=== PATIENT | female | born 1960 | race Caucasian/White ===

== ENCOUNTER 2021-01-28 07:32 | Emergency (ER) | payer BC, OTHER ==
[2021-01-28 07:51] VITALS: TEMP 98.1
[2021-01-28 08:44] LABS: BASO % 0.2 % (0-2.0); EOS % 1.2 % (0-4.5); HEMATOCRIT 42.7 % (32.4-45.2); HEMOGLOBIN 14.2 GM/dL (10.7-15.3); LYMPH % 16.1 % (8-40); MCH 27.4 pg (25.7-33.7); MCHC 33.2 g/dl (32.0-36.0); MEAN CELL VOLUME 82.6 fl (80-96); MEAN PLT VOLUME 10.5 fl (7.5-11.1); MONO % 6.5 % (3.8-10.2); PLATELET COUNT 235 10^3/uL (134-434); RBC 5.18 M/mm3 (3.60-5.2); RDW 15.7 % (11.6-15.6); WHITE BLOOD COUNT 12.1 K/mm3 (4.0-10.0)
[2021-01-28 08:51] LABS: INR 1.02 (0.83-1.09); PROTHROMBIN TIME (PATIENT) 12.5 SEC (9.7-13.0)
[2021-01-28 08:54] LABS: ACTIVATED PTT 36.2 SECONDS (25.2-36.5)
[2021-01-28 08:57] LABS: CHLORIDE 107 mmol/L (98-107); SODIUM 141 mmol/L (136-145)
[2021-01-28 08:59] LABS: CALCIUM 9.1 mg/dL (8.5-10.1)
[2021-01-28 09:00] LABS: ANION GAP 9 MMOL/L (8-16); BLOOD UREA NITROGEN 10.6 mg/dL (7-18); CO2 25 mmol/L (21-32); GLUCOSE,RANDOM 104 mg/dL (74-106)
[2021-01-28 09:03] LABS: CREATININE 0.6 mg/dL (0.55-1.3); SGOT/AST 14 U/L (15-37); SGPT/ALT 23 U/L (13-61)
[2021-01-28 09:04] LABS: BILIRUBIN,TOTAL 0.8 mg/dL (0.2-1)
[2021-01-28 09:05] LABS: TOT PROT 7.3 g/dl (6.4-8.2)
[2021-01-28 09:06] LABS: ALK PHOS 88 U/L (45-117)
[2021-01-28] MEDS ORDERED: KETOROLAC TROMETHAMINE 30 MG/1 ML VIAL IVPUSH ONE (12:11)
[2021-01-28] MEDS ORDERED: KETOROLAC TROMETHAMINE 30 MG/1 ML VIAL ONE (12:14)
[2021-01-28 12:47] VITALS: BP 137/79; PULSE 80
== END 2021-01-28 12:45 | disposition home or self-care (01) ==
LOC: JER 07:32
PROC: 3E0333Z Introduction of Anti-inflammatory into Peripheral Vein, Percutaneous Approach (ICD-10-PCS; principal; 2021-01-28)
DX: R06.02 Shortness of breath (principal); M54.6 Pain in thoracic spine
CPT/HCPCS: 36415; 71275-TC; 80053; 82550; 84484; 85025; 85379; 85610; 85730; 86850; 86900; 86901; 93005; 93010; 99285-25; C9803; Q9967; U0003; U0005

== ENCOUNTER 2023-01-10 08:10 | Day surgery (SDC) | payer BC, OTHER ==
[2023-01-10 09:45] VITALS: RESP 18; BMI 31.7
[2023-01-10] MEDS ORDERED: DEXAMETHASONE SOD PHOSPHATE/PF 10 MG/ML SDV ONE (11:08)
[2023-01-10] MEDS ORDERED: ROPIVACAINE HCL 0.5% 30ML VIAL ONE (11:08)
[2023-01-10] MEDS ORDERED: MIDAZOLAM HCL 2 MG/2 ML SINGLE DOSE VIAL ONE ×2 (11:08→12:03)
[2023-01-10] MEDS ORDERED: SUCCINYLCHOLINE CHLORIDE 200 MG/10 ML SYRINGE ONE (11:41)
[2023-01-10] MEDS ORDERED: PROPOFOL 40 ML ONE (11:41)
[2023-01-10] MEDS ORDERED: ONDANSETRON 4 MG/2 ML VIAL IVPUSH PRN (13:15)
[2023-01-10] MEDS ORDERED: oxyCODONE HCL 5 MG TABLET PO PRN (13:15)
[2023-01-10] MEDS ORDERED: LACTATED RINGERS SOLUTION 1,000 ML IV SCH (13:15)
[2023-01-10 14:35] VITALS: PULSE 85; TEMP 97.8
[2023-01-10 14:36] VITALS: BP 133/81
== END 2023-01-10 14:39 | disposition home or self-care (01) ==
LOC: FER 08:10 → FASUSAT 09:14
PROVIDERS: ATTEND Orthopaedic Surgery
PROC: 0PSJ04Z Reposition Left Radius with Internal Fixation Device, Open Approach (ICD-10-PCS; principal; 2023-01-10 12:07)
DX: S52.572A Other intraarticular fracture of lower end of left radius, initial encounter for closed fracture (principal); X58.XXXA Exposure to other specified factors, initial encounter; Y93.9 Activity, unspecified; Y92.9 Unspecified place or not applicable
CPT/HCPCS: 25609; C1713; 94760; 99285-25

== ENCOUNTER 2024-03-16 04:34 | Day surgery (SDC) | payer BC, OTHER ==
[2024-03-11 14:26] VITALS: BMI 33.1
[2024-03-16 06:21] VITALS: RESP 18
[2024-03-16] MEDS ORDERED: PROPOFOL 20 ML ONE (07:26)
[2024-03-16] MEDS ORDERED: MIDAZOLAM HCL 2 MG/2 ML SINGLE DOSE VIAL ONE (07:26)
[2024-03-16] MEDS ORDERED: ONDANSETRON 4 MG/2 ML VIAL IVPUSH PRN (07:35)
[2024-03-16] MEDS ORDERED: oxyCODONE HCL 5 MG TABLET PO PRN (07:35)
[2024-03-16] MEDS ORDERED: LACTATED RINGERS SOLUTION 1,000 ML IV SCH (07:45)
[2024-03-16] MEDS ORDERED: IBUPROFEN 400 MG TABLET (FP) PO PRN (08:11)
[2024-03-16] MEDS ORDERED: ACETAMINOPHEN 325 MG TABLET (FP) PO PRN (08:11)
[2024-03-16 09:35] VITALS: BP 142/73; PULSE 70
[2024-03-16 09:40] VITALS: TEMP 97.1
== END 2024-03-16 10:05 | disposition home or self-care (01) ==
LOC: JASU-SURG 04:34
PROVIDERS: ATTEND Obstetrics & Gynecology
PROC: 0UB98ZZ Excision of Uterus, Via Natural or Artificial Opening Endoscopic (ICD-10-PCS; principal; 2024-03-16 07:30)
DX: D25.0 Submucous leiomyoma of uterus (principal); N85.6 Intrauterine synechiae
CPT/HCPCS: 88305-TC; 94760